=== PATIENT | female | born 1980 ===

== ENCOUNTER 2016-02-29 09:25 | Outpatient (CLI) | payer OTHER ==
--- NOTE | 2016-03-01 08:59 | Ultrasound Report ---
TRANSABDOMINAL AND TRANSVAGINAL PELVIC ULTRASOUND: 02/29/16 09:25:00 CLINICAL: Menorrhagia. FINDINGS: Transabdominal and transvaginal pelvic ultrasound demonstrated a normal uterus measuring 8.7 x 4.2 x 5.5 cm. Normal uterine contour and echogenicity. No uterine fibroids or mass.The endometrium is mildly thickened and measures 11.0 m AP thickness. The largest follicles of the right ovary measure 2.8 and 2.6 cm. The right ovary measures 3.9 x 3.3 x 3.2cm. A 1.5 cm cyst of the left ovary. The left ovary measures 3.2 x 1.7 x 1.8cm. No adnexal mass. No free fluid. Normal urinary bladder. IMPRESSION: Normal uterus and ovaries.
== END 2016-02-29 09:26 | disposition home or self-care (01) ==
LOC: SPVWC 09:25
PROVIDERS: ATTEND Internal Medicine
DX: N83.202 Unspecified ovarian cyst, left side (principal); N92.0 Excessive and frequent menstruation with regular cycle
CPT/HCPCS: 76830; 76856